=== PATIENT | female | born 1985 | race Caucasian/White ===

== ENCOUNTER 2017-06-30 22:18 | Emergency (ER) | payer SELFPAY ==
[~2017-06-30] VITALS: Ht 172.7 cm; Wt 74.3 kg
[~2017-06-30 22:18] MED LIST: PRENTAB65 PO
[2017-06-30 22:21] VITALS: TEMP 36.9; Ht 172.7 cm; Wt 74.3 kg
[2017-06-30 23:09] LABS: BASO % 0.5 %; BASO ABS # 0.05 K/uL (0-0.2); EOS ABS # 0.31 K/uL (0-0.5); HEMATOCRIT 38.9 % (37-47); HEMOGLOBIN 13.3 g/dL (12.0-16.0); IG# 0.02 K/uL (0.00-0.02); LYMPH % 38.3 %; LYMPH ABS # 3.92 K/uL (1.2-3.4); MEAN CELL VOLUME 80.9 fL (80-100); MEAN CORPUSCULAR HEMOGLOBIN 27.7 pg (25-34); MEAN CORPUSCULAR HGB CONC 34.2 g/dl (32-36); MEAN PLATELET VOLUME 9.9 fL (7.4-10.4); MONO % 8.5 %; MONO ABS # 0.87 K/uL (0.11-0.59); NEUT % 49.5 %; NEUT ABS # 5.07 K/uL (1.4-6.5); PLATELET COUNT 252 K/uL (130-400); RED CELL DISTRIBUTION WIDTH CV 12.7 % (11.5-14.5); RED CELL DISTRIBUTION WIDTH SD 37.4 fL (36.4-46.3); WHITE BLOOD COUNT 10.24 K/uL (4.8-10.8)
[2017-06-30 23:32] LABS: CALCIUM 8.9 mg/dl (8.5-10.1); CREATININE 0.91 mg/dl (0.60-1.20); POTASSIUM 3.7 mmol/L (3.5-5.1)
[2017-06-30 23:35] LABS: TOTAL PROTEIN 8.2 gm/dl (6.4-8.2)
--- NOTE | 2017-07-01 00:01 | EMERGENCY ROOM VISIT NOTE ---
History First contact with patient: 22:22 Chief Complaint: ED VAG BLEEDING Stated Complaint: 4 WEEK MISCARRIAGE? History of Present Illness The patient is a 31 year old female who presents to the Emergency Room with complaints of vaginal bleeding that started yesterday. The patient is approximately 4 weeks . Her last menstrual period started on May 27. She had a positive test on June 26. She is . She denies any significantly heavy bleeding. She reports it is like her normal menses. She has minor menstrual cramping. No fever or chills. No lightheadedness, chest pain or shortness of breath. Review of Systems 10 system review performed and negative unless noted in HPI or below Past Medical/Surgical History Medical Problems: (1) No Known Active Medical Problems Family History FHx: cancer Social History Smoking Status: Never Smoker Alcohol Use: occasionally Marital Status: Housing Status: lives with roommate Occupation Status: employed Current/Historical Medications Scheduled Multivit (), 2 TABS PO DAILY Physical Exam Vital Signs Date Time Temp Pulse Resp B/P (MAP) Pulse Ox O2 Delivery O2 Flow Rate FiO2 07/01/17 01:25 72 18 99 07/01/17 00:21 68 17 112/65 99 Room Air 06/30/17 22:21 36.9 85 18 127/79 96 Room Air Physical Exam VITALS: Vitals are noted on the nurse's note and reviewed by myself. Vital signs stable. GENERAL: 31-year-old female, in no acute distress, nondiaphoretic, well- developed well-nourished. SKIN: The skin was without rashes, erythema, edema, or bruising. HEAD: Normocephalic atraumatic. EYES: Conjunctivae without injection, sclerae without icterus. Extraocular movements intact. NECK: Supple without nuchal rigidity. No JVD. HEART: Regular rate and rhythm without murmurs gallops or rubs. LUNGS: Clear to auscultation bilaterally without wheezes, rales or rhonchi. No accessory muscle use. ABDOMEN: Positive bowel sounds x 4.Soft, nontender, without organomegaly. No guarding or rebound tenderness. MUSCULOSKELETAL: No muscle atrophy, erythema, or edema noted. Strength 5/5 throughout. NEURO: Patient was alert and oriented to person place and time. Normal sensation to touch. No focal neurological deficits. Medical Decision & Procedures ER Provider Diagnostic Interpretation: Preliminary results of a vaginal ultrasound show the following: Endometrial stripe is 6 mm Question small amount of blood products within the endometrial stripe Nabothian cyst suspected near the lower uterine segment Ovaries are unremarkable No adnexal masses No free fluid Laboratory Results 06/30/17 22:51 Red Blood Count 4.81, Mean Corpuscular Volume 80.9, Mean Corpuscular Hemoglobin 27.7, Mean Corpuscular Hemoglobin Concent 34.2, Mean Platelet Volume 9.9, Neutrophils (%) (Auto) 49.5, Lymphocytes (%) (Auto) 38.3, Monocytes (%) (Auto) 8.5, Eosinophils (%) (Auto) 3.0, Basophils (%) (Auto) 0.5, Neutrophils # (Auto) 5.07, Lymphocytes # (Auto) 3.92, Monocytes # (Auto) 0.87, Eosinophils # (Auto) 0.31, Basophils # (Auto) 0.05 06/30/17 22:51 Test 06/30/17 22:51 White Blood Count 10.24 K/uL (4.8-10.8) Red Blood Count 4.81 M/uL (4.2-5.4) Hemoglobin 13.3 g/dL (12.0-16.0) Hematocrit 38.9 % (37-47) Mean Corpuscular Volume 80.9 fL (80-100) Mean Corpuscular Hemoglobin 27.7 pg (25-34) Mean Corpuscular Hemoglobin Concent 34.2 g/dl (32-36) Platelet Count 252 K/uL (130-400) Mean Platelet Volume 9.9 fL (7.4-10.4) Neutrophils (%) (Auto) 49.5 % Lymphocytes (%) (Auto) 38.3 % Monocytes (%) (Auto) 8.5 % Eosinophils (%) (Auto) 3.0 % Basophils (%) (Auto) 0.5 % Neutrophils # (Auto) 5.07 K/uL (1.4-6.5) Lymphocytes # (Auto) 3.92 K/uL (1.2-3.4) Monocytes # (Auto) 0.87 K/uL (0.11-0.59) Eosinophils # (Auto) 0.31 K/uL (0-0.5) Basophils # (Auto) 0.05 K/uL (0-0.2) RDW Standard Deviation 37.4 fL (36.4-46.3) RDW Coefficient of Variation 12.7 % (11.5-14.5) Immature Granulocyte % (Auto) 0.2 % Immature Granulocyte # (Auto) 0.02 K/uL (0.00-0.02) Anion Gap 7.0 mmol/L (3-11) Est Creatinine Clear Calc Drug Dose 90.3 ml/min Estimated GFR () 97.4 Estimated GFR (Non- 84.1 BUN/Creatinine Ratio 12.7 (10-20) Calcium Level 8.9 mg/dl (8.5-10.1) Total Bilirubin 0.4 mg/dl (0.2-1) Aspartate Amino Transf (AST/SGOT) 17 U/L (15-37) Alanine Aminotransferase (ALT/SGPT) 19 U/L (12-78) Alkaline Phosphatase 63 U/L (45-117) Total Protein 8.2 gm/dl (6.4-8.2) Albumin 4.0 gm/dl (3.4-5.0) Globulin 4.2 gm/dl (2.5-4.0) Albumin/Globulin Ratio 0.9 (0.9-2) Human Chorionic Gonadotropin, Quant 44 mIU/mL ED Course Patient was seen and examined Vital signs including blood pressure were reviewed medications list was verified with patient Labs were obtained, and a saline lock was established The patient declined pain medication Imaging was performed and reviewed The patient was reassessed and resting comfortably. We reviewed her workup. She voiced understanding. She was comfortable being discharged home. I reviewed discharge instructions the patient. They voiced understanding and had no further questions. Medical Decision Differential diagnosis: Miscarriage in early , threatened miscarriage, missed , ectopic , subchorionic bleed/hematoma This patient is a 31-year-old female in early that presents with vaginal bleeding. On exam, her abdomen is benign. I had a very low suspicion of ectopic . Her quant hCG level is 44, which is very low for her thought gestational age. Her ultrasound showed possible blood products. No gestational sac was noted. This is likely a miscarriage. The patient is O+, no need for RhoGam. She will need close follow-up with OB. She already has an appointment scheduled for this coming . She was counseled on pelvic rest. She was comfortable being discharged home. She will return with any new or concerning symptoms This chart was completed in part utilizing [employer] Speech Voice Recognition software. Attempts were made to minimize the grammatical errors, random word insertions, pronoun errors and incomplete sentences. Any formal questions or concerns about the content, text or information contained within the body of this dictation should be directly addressed to the provider for clarification. Impression Primary Impression: Miscarriage Departure Information Dispostion Home / Self-Care Condition GOOD Referrals No Doctor, Assigned (PCP) Patient Instructions My [facility] Additional Instructions You have been evaluated in the emergency department tonight for vaginal bleeding during early . This is likely due to a miscarriage Please practice pelvic rest-no sexual activity, do not use tampons, nothing in the vagina Please keep your PERFORMANCE IMPROVEMENT COORDINATOR appointment as scheduled on Friday. You will need to repeat blood work You may take ibuprofen 600 mg every 6 hours as needed for abdominal cramping Please do not hesitate to return to the emergency department with any new, worsening or concerning symptoms; especially, bleeding >2 pads per hour, severe abdominal pain or lightheadedness.
[2017-07-01 00:21] VITALS: BP 112/65
[2017-07-01 01:25] VITALS: PULSE 72; O2SAT 99
--- NOTE | 2017-07-01 06:53 | DIAGNOSTIC IMAGING REPORT ---
<14 WKS SINGLE HISTORY: 31 years-old Female 4-5 weeks bleeding acute vaginal bleeding with COMPARISON: None available TECHNIQUE: Multiple real-time sonographic images of the deep pelvic structures were obtained transabdominally and transvaginally assessing grayscale appearance, color and spectral flow FINDINGS: TRANSABDOMINAL: Anteflexed uterus measures 7.1 x 3.3 x 4.0 cm. Endometrium measures 0.4 cm. TRANSVAGINAL: Anteflexed uterus measures 7.3 x 3.3 x 3.8 cm. Endometrium measures 0.6 cm and is mildly heterogeneous. Technologist reports mobile debris within the endometrial canal. There is a 0.2 cm hypoechoic structure of the lower uterine segment suggesting nabothian cyst. No definite intrauterine or extrauterine gestation identified. The right ovary measures 2.9 x 2.6 x 2.6 cm and is unremarkable with arterial inflow documented. The left ovary measures 2.4 x 1.5 x 2.4 cm and is also within normal limits with arterial inflow documented. No adnexal mass lesions. No significant free pelvic fluid. IMPRESSION: 1. Mildly heterogeneous appearance of the endometrium with reported mobile endometrial debris seen during real-time imaging suggesting blood products. No definite intrauterine or extrauterine gestation identified. In the setting of positive beta hCG, differential considerations would include recent spontaneous , early intrauterine gestation or occult ectopic . Correlation with serial quantitative beta hCG analysis and follow-up ultrasound imaging is recommended. 2. 0.2 cm hypoechoic structure of the lower uterine segment suggests probable nabothian cyst. 3. Unremarkable sonographic appearance of the ovaries. The above report was generated using voice recognition software. It may contain grammatical, syntax or spelling errors. Electronically signed by: Yinka Del Real M.D. 07/01/2017 6:51 AM Dictated Date/Time: 07/01/2017 6:47 AM
== END 2017-07-01 01:26 | disposition home or self-care (01) ==
LOC: C.EDB 22:18
DX: O03.9 Complete or unspecified spontaneous abortion without complication (principal); Z3A.01 Less than 8 weeks gestation of pregnancy

== ENCOUNTER 2018-06-29 22:29 | Inpatient (IN) ==
[2018-06-29] MEDS ORDERED: LACTATED RINGER'S 1,000 ML IV PRN (23:08)
[2018-06-29] MEDS ORDERED: OXYTOCIN 30 UNITS/500 ML BAG IV PRN (23:08)
[2018-06-29] MEDS ORDERED: LACTATED RINGER'S 1,000 ML IV SCH (23:15)
[2018-06-29 23:42] LABS: Hematocrit (blood only) 33.3 % (37-47); Hemoglobin 11.3 g/dL (12.0-16.0); Mean Corpuscular Hgb Conc 33.9 g/dL (32-36); Platelet Count 220 K/uL (130-400); RDW Coefficient of Variation 13.8 % (11.5-14.5); RDW Standard Deviation 39.2 fL (36.4-46.3); Red Blood Count 4.27 M/uL (4.2-5.4); White Blood Count 15.47 K/uL (4.8-10.8)
[2018-06-29] MEDS ORDERED: BUPIVACAINE 0.25% 30 ML VIAL ONE (23:42)
[2018-06-29] MEDS ORDERED: fentaNYL citrate 100 MCG/2 ML VIAL ONE (23:42)
[2018-06-29] MEDS ORDERED: ePHEDrine sulfate 50 MG/ML AMP ONE (23:42)
[2018-06-29] MEDS ORDERED: fentaNYL 2MCG/ML ROPIV 1.25MG/ML 100 ML BAG EPI ONE (23:43)
--- NOTE | 2018-06-29 23:55 | Anesthesiology Consultation ---
Date of Service June 29, 2018 Assessment & Plan Chart Review Chart Review: Patient NOT seen in Pre Admission Testing and Acceptable Risk for Labor Epidural Consults Requested none ASA ASA2 Proposed Anesthesia Anesthesia Type: Labor Epidural Risk / Benefits Reviewed With: PT / POA / Parent / Guardian, Accepts Plan and Informed Consent Obtained History Height/Weight Height: 5 ft 8 in Weight: 92.986 kg Allergies Allergy/AdvReac Type Severity Reaction Status Date / Time latex Allergy Intermediate Sneezing, Verified 12/22/15 18:29 skin irritation Medications Home Medications Medication Instructions Recorded Confirmed Last Taken 1 tab PO DAILY 06/29/18 06/29/18 06/29/18 08:00 Active Medications Generic Name Dose Route Start Last Admin Trade Name Freq PRN Reason Stop Dose Admin Lactated Ringer's 1,000 mls @ 999 mls/hr 06/29/18 23:08 06/30/18 00:00 Lr IV 07/29/18 23:07 125 mls/hr .Q1H1M PRN Infusion Pre-Anesthesia NPO Date Last Intake of Fluids: 06/29/18 Time Last Intake of Fluids: 23:53 Date Last Intake of Solids: 06/29/18 Time Last Intake of Solids: 19:30 Past Medical History Medical History Presence of tooth-root and mandibular implants Exercise / Class Metabolic Activity II 4-5 Yardwork/Stairs/Walk up hill Past Surgical History Surgical History Hx of LASIK [place] teeth removed Past Anesthesia History No Hx of Anesthesia Complications and No Family Hx of Anesthesia Complications History of PONV No Hx of PONV and No Hx of Motion Sickness Social History Smoking Status: Never smoker Do You Dip or Chew Tobacco: No Hx Alcohol Use: No Hx Substance Use: No Review of Systems Patient denies active symptoms of GERD. Patient denies history of abnormal bleeding or bleeding disorder. Patient denies active use of anticoagulants other than low dose aspirin. Patient denies numbness, tingling or weakness in lower extremities. Physical Exam Vital Signs Last Vital Signs Temp 36.7 C 06/29/18 22:43 Pulse 82 06/29/18 22:41 Resp 20 06/29/18 22:43 BP 142/87 H 06/29/18 22:41 Constitutional not obese (Gravid uterus) ENMT Mouth: no TMJ abnormality and oral opening not small Thyromental Distance: > or= 3.5 Finger Breadths Mallampati Class: II Mouth / Teeth: 1. Implants Neck normal visual inspection; neck extension not limited Respiratory normal respiratory effort, lungs clear to auscultation normal respiratory effort Auscultation: lungs clear to auscultation bilaterally Cardiovascular Rate/Rhythm: regular rate and regular rhythm Heart Sounds: no murmur Neurologic moves all extremities Motor/Sensory: no sensory deficit Psychiatric Orientation: alert and oriented x 3 Testing Laboratory Results 06/29/18 23:26
[2018-06-30] MEDS ORDERED: LACTATED RINGER'S 1,000 ML IV PRN (00:38)
[2018-06-30] MEDS ORDERED: DiphenhydrAMINE HCL 50 MG/ML VIAL IV PRN (00:38)
[2018-06-30] MEDS ORDERED: NALOXONE HCL 1 MG in SODIUM CHLORIDE 0.9% 1000ML 1,000 ML IV PRN (00:38)
[2018-06-30] MEDS ORDERED: NALBUPHINE HCL INJ 10 MG/ML AMP IV PRN (00:38)
[2018-06-30] MEDS ORDERED: NALOXONE HCL 0.4 MG/1 ML VIAL/CARP IV PRN (00:38)
[2018-06-30] MEDS ORDERED: ePHEDrine sulfate 50 MG/ML AMP IV PRN (00:38)
[2018-06-30] MEDS ORDERED: fentaNYL 2MCG/ML ROPIV 1.25MG/ML 100 ML BAG EPI PRN (00:38)
[2018-06-30] MEDS ORDERED: CALCIUM CARBONATE 500 MG CHEWABLE TAB PO PRN (06:19)
--- NOTE | 2018-06-30 08:26 | Procedure Note ---
Vaginal Delivery Summary Date of Service June 30, 2018 Spontaneous vaginal delivery of a live male baby delivered in occiput anterior position no nuchal cord clear fluid no excessive force used easy delivery baby placed on mother's abdomen cord clamped and cut cord blood obtained I was unable to collect enough for cord collection cannot placenta removed with traction IV Pitocin started there was some increased bleeding which responded to an increase in the IV rate of Pitocin second-degree tear repaired with 3-0 Vicryl rectal exam negative for defect sponge and instrument counts correct estimated blood loss 400 mL
[2018-06-30] MEDS ORDERED: HYDROCORTISONE ACETATE 25 MG SUPP PR PRN (08:27)
[2018-06-30] MEDS ORDERED: BENZOCAINE 20% AER SPR 82.5 GM CAN EXT PRN (08:27)
[2018-06-30] MEDS ORDERED: OXYTOCIN 30 UNITS/500 ML BAG IV PRN (08:27)
[2018-06-30] MEDS ORDERED: BISACODYL 10 MG SUPP PR PRN (08:27)
[2018-06-30] MEDS ORDERED: DIPHTHERIA/TETANUS/PERTUSSIS 0.5 ML SYR/VIAL IM ONE (08:27)
[2018-06-30] MEDS ORDERED: SUPERCREAM 0.870% 15 GM JAR EXT PRN (08:27)
[2018-06-30] MEDS ORDERED: ACETAMINOPHEN 325 MG TAB PO PRN (08:27)
[2018-06-30] MEDS ORDERED: PRENATAL VITAMIN 1 TAB PO SCH (09:00)
--- NOTE | 2018-06-30 09:38 | Anesthesia Procedure Note ---
Date of Service June 30, 2018 Anesthesia Post Epidural Note Vital Signs Vital Signs: Temp Pulse Resp BP Pulse Ox 36.8 C 92 H 20 122/81 96 06/30/18 07:12 06/30/18 09:32 06/30/18 08:45 06/30/18 09:32 06/30/18 08:00 Pain Intensity Bilateral Abdomen: Pain Intensity: 1 Notes Mental Status: alert / awake / arousable Patient Amnestic to Procedure: No Nausea / Vomiting: adequately controlled Pain: adequately controlled Airway Patency, RR, SpO2: stable & adequate BP & HR: stable & adequate Hydration State: stable & adequate Anesthetic Complications: no major complications apparent Epidural: Removed without complications and With tip intact Notes: Doing well, no complaints. VSS
[2018-06-30] MEDS: DOCUSATE SODIUM 100 MG CAP PO SCH (20:33)
[2018-06-30] MEDS: IBUPROFEN 600 MG TAB PO PRN (20:33)
[2018-07-01] MEDS: IBUPROFEN 600 MG TAB PO PRN ×2 (06:23→10:48)
--- NOTE | 2018-07-01 07:05 | Obstetrical Progress Note ---
Date of Service July 01, 2018 Assessment & Plan (1) Status post vaginal delivery: Patient is a 32 year old PPD 1 s/p @ 37+4 -Vital signs WNL bp 123/72 T36.6, -Hemoglobin was 11.3 on admission. no si/sx of anemia. -Pt is doing clinically well -Continue to encourage ambulation as tolerated, Monitor and control pain with motrin prn, Continue diet as tolerated. -Continue to support and encourage breast feeding -Counseled patient on discharge instructions including Vaginal bleeding, fevers, followup, lifting restrictions, breast feeding, vitamins, and nothing in the vagina for 6 weeks. Pt was agreeable -Plan for d/c today Supervising Physician Co-Signing Physician Notes I have reviewed the resident's note and examined the patient myself, and agree with the note above. Subjective Pt sitting up in bed watching "Don't Shake The Baby" with her mother at the bedside. No acute events overnight. Pt is ambulating, tolerating her diet, voiding, and passing gas, still no bm. Reports moderate lochia. Denies H/A, chest pain, palpitations and uti syx. I answered all questions, no concerns at this time Physical Exam Constitutional: WD/WN, vitals as above no acute distress Eyes: normal visual anderson by confrontation Neck: normal visual inspection Respiratory: normal respiratory effort, lungs clear to auscultation Cardiovascular: RRR, no murmur, no edema Heart Sounds: normal S1 and normal S2 Extremities: no calf tenderness Gastrointestinal (Abdomen): Uterus firm and below the umbilicus Results & Data Vital Signs (Past 12 Hours) Vital Signs Temp Pulse Resp BP Pulse Ox 07/01/18 03:00 36.6 C 85 18 123/72 06/30/18 23:25 36.4 C L 83 18 126/75 06/30/18 20:37 36.4 C L 99 H 18 129/77 99 Medications Administered Current Inpatient Medications Acetaminophen (Tylenol) 650 mg PO Q6H PRN PRN Reason: Pain/OSORIO/Fever Stop: 07/30/18 08:26 Benzocaine (Dermoplast Pain Relieving Gravity) 1 appln EXT PRN PRN PRN Reason: Perineal Discomfort Stop: 07/30/18 08:26 Last Admin: 06/30/18 23:35 Dose: 82.5 appln Documented by: Bisacodyl (Dulcolax) 5 mg PO 1999 [facility] Stop: 07/01/18 20:01 Bisacodyl (Dulcolax) 10 mg OR DAILY PRN PRN Reason: No BM on 2nd post- day Stop: 07/30/18 08:26 Calcium Carbonate (Tums) 1,000 mg PO Q4 PRN PRN Reason: Indigestion Stop: 07/30/18 06:18 Last Admin: 06/30/18 06:27 Dose: 1,000 mg Documented by: Cocaine HCl (Supercream 0.870%) 1 gm EXT BID PRN PRN Reason: Hemorrhoidal Inflammation Stop: 07/14/18 08:26 Last Admin: 06/30/18 23:35 Dose: 1 gm Documented by: Docusate Sodium (Colace) 100 mg PO BID [facility] Stop: 07/30/18 08:59 Last Admin: 06/30/18 20:33 Dose: 100 mg Documented by: Hydrocortisone (Anusol Hc) 25 mg OR BID PRN PRN Reason: Hemorrhoidal Inflammation Stop: 07/30/18 08:26 Lactated Ringer's (Lr) 1,000 mls @ 125 mls/hr IV .Q8H [facility] Stop: 07/01/18 23:14 Last Infusion: 06/30/18 08:10 Dose: 0 mls/hr Documented by: Oxytocin (Pitocin) 30 units in 500 mls @ 333.333 mls/hr IV .Q1H30M PRN; Protocol PRN Reason: Bleeding Control Last Admin: 06/30/18 08:54 Dose: 20 units/hr, 333.3 mls/hr Documented by: Ibuprofen (Motrin) 600 mg PO Q4H PRN PRN Reason: Pain/OSORIO/Cramping/Fever Stop: 07/30/18 08:26 Last Admin: 07/01/18 06:23 Dose: 600 mg Documented by: Prenat Multivit/[place]/Iron/Folic Ac ( Vitamin) 1 tab PO QAM [facility] Stop: 07/30/18 08:59 Resident Activity Tracking Resident Involvement: Resident Care Provided Care Provided: Adult Hospital Medicine
[2018-07-01 07:49] LABS: Hematocrit (blood only) 22.6 % (37-47); Hemoglobin 7.6 g/dL (12.0-16.0); Mean Corpuscular Hgb Conc 33.6 g/dL (32-36); Mean Corpuscular Volume 78.7 fL (80-100); Mean Platelet Volume 11.3 fL (7.4-10.4); Platelet Count 160 K/uL (130-400); RDW Coefficient of Variation 14.1 % (11.5-14.5); RDW Standard Deviation 40.6 fL (36.4-46.3); Red Blood Count 2.87 M/uL (4.2-5.4)
[2018-07-01] MEDS: DOCUSATE SODIUM 100 MG CAP PO SCH (08:49)
[2018-07-01] MEDS ORDERED: BISACODYL 5 MG TABEC PO SCH (20:00)
== END 2018-07-01 11:00 | disposition home or self-care (01) | DRG 807 ==
LOC: OPB 22:29 → 4S1 22:30 → 4S2 06-30 13:21